=== PATIENT | female | born 1990 | race Caucasian/White ===

== ENCOUNTER → 2017-05-26 | Outpatient (CLI) | payer MEDICAID ==
[~2017-05-26] MED LIST: B COMPLEX & B121 TAB; B12 INJ.,1000 MCG/M IM; DARVOCET-N 1001 EACH PO; FLAGYL 500MG.500 MG PO; LORTAB 5/500 501 TAB PO; MOTRIN 600MG.600 MG PO; NAPROXEN500 M1 PO; OMNICEF 300 MG300 MG PO; PHENERGAN 25MG.25 M1 PO; PHENERGAN12.5 M3 PO; RANITIDINE HCL150 M1 PO; REGLAN10 M1 PO
--- NOTE | 2017-05-26 15:32 | RADIOLOGY REPORT PS360 ---
WRIST-3 VIEWS-LT HISTORY: Is LEFT WRIST PAIN ORDERING PHYSICIAN: CHANG SYED MD PATIENT AGE: 26 years COMPARISON: None FINDINGS: No fracture or dislocation. No lytic or blastic change. There is normal mineralization. The joint spaces are well-preserved. No significant degenerative/arthritic changes. No erosive changes evident. IMPRESSION: Negative, no acute finding
== END ==
LOC: RAD 13:50
DX: M25.532 Pain in left wrist (principal)

== ENCOUNTER → 2017-08-29 | Outpatient (CLI) | payer MEDICAID ==
[2017-08-29 15:50] LABS: HEMOGLOBIN 14.2 g/dL (12.2-16.2); LYMPH # 3.2 K/mm3 (0.7-4.5); LYMPH % 28.7 % (10-50.0)
[2017-08-29 16:22] LABS: BUN 13 mg/dL (7-18)
[2017-08-29 16:23] LABS: GFR (ESTIMATED) 76 ML/MIN (59-)
== END ==
LOC: LAB 14:41
PROVIDERS: Orthopaedic Surgery
DX: M65.4 Radial styloid tenosynovitis [de Quervain] (principal)